=== PATIENT | male | born 1970 | race Hispanic/Latino ===

== ENCOUNTER 2017-03-30 06:49 | Emergency (ER) | payer OTHER ==
[2017-03-30 07:03] VITALS: PULSE 69; TEMP 98.6
[2017-03-30] MEDS ORDERED: Lidocaine 1% Inj (20ml) INFIL STA (07:24)
--- NOTE | 2017-03-30 07:27 | C.PDOC ---
Time Seen by Provider: 03/30/17 07:15 Chief Complaint (Nursing): Abnormal Skin Integrity Past Medical History Vital Signs: Last Vital Signs Temp 98.6 F 03/30/17 07:00 Pulse 69 03/30/17 07:00 Resp 20 03/30/17 07:00 BP 138/88 03/30/17 07:00 Pulse Ox 98 03/30/17 07:00 - Social History Hx Alcohol Use: No Hx Substance Use: No - Immunization History Hx Tetanus Toxoid Vaccination: No Hx Influenza Vaccination: No Hx Pneumococcal Vaccination: No ED Course And Treatment O2 Sat by Pulse Oximetry: 98 Disposition - Disposition
[2017-03-30] MEDS ORDERED: Lidocaine 1% Inj (20ml) ONE (07:28)
--- NOTE | 2017-03-30 07:31 | C.PDOC ---
History Of Present Illness 46 y/o male presents to ED for evaluation of laceration sustained on right hand while opening broken window prior to arrival. Patient denies foreign body sensation, change in sensation, active bleeding or any other complaints at this time. As per patient last tetanus vaccine was administered in 2015. Time Seen by Provider: 03/30/17 07:15 Chief Complaint (Nursing): Abnormal Skin Integrity History Per: Patient History/Exam Limitations: no limitations Onset/Duration Of Symptoms: Hrs Current Symptoms Are (Timing): Still Present Location Of Injury: Right: Hand Quality Of Symptoms: Painful Past Medical History Reviewed: Historical Data, Nursing Documentation, Vital Signs Vital Signs: Last Vital Signs Temp 98.6 F 03/30/17 07:00 Pulse 69 03/30/17 07:00 Resp 20 03/30/17 07:00 BP 138/88 03/30/17 07:00 Pulse Ox 98 03/30/17 07:45 - Medical History PMH: No Chronic Diseases Surgical History: No Surg Hx Family History: States: No Known Family Hx - Social History Hx Alcohol Use: No Hx Substance Use: No - Immunization History Hx Tetanus Toxoid Vaccination: No Hx Influenza Vaccination: No Hx Pneumococcal Vaccination: No Review Of Systems Gastrointestinal: Negative for: Nausea, Vomiting Musculoskeletal: Positive for: Hand Pain Skin: Negative for: Rash Neurological: Negative for: Weakness, Numbness Physical Exam - Physical Exam Appears: Non-toxic, No Acute Distress Skin: Warm, Dry, Other (2cm linear superficial laceration to right hand between 4th and 5th digit. No active bleeding) Head: Normacephalic Oral Mucosa: Moist Chest: Symmetrical Extremity: Capillary Refill (<2 seconds), No Deformity Extremity: Bilateral: Normal ROM Pulses: Left Radial: Normal, Right Radial: Normal Neurological/Psych: Oriented x3, Normal Motor, Normal Sensation ED Course And Treatment O2 Sat by Pulse Oximetry: 98 (RA) Pulse Ox Interpretation: Normal Laceration - Laceration Repair right hand Wound Length (In cm): 2 Description Of Wound: Linear Wound Cleansed With: Betadine, Sterile Saline Anesthesia: Lidocaine 1% Wound Examination: Irrigated With Saline, No FB With Wound Exploration, No Tendon Injury With Wound Exploration Wound Closure: Suture (3) Suture Technique And Material Used: Nylon (4-O) Wound Complexity: Simple Medical Decision Making Medical Decision Making: Plan: Right hand Laceration Repair Instruct patient on wound care. Additionally patient complains of pain to right upper tooth; area examined no swelling and fair dentition with caries. Will give antibiotics and instruct to follow up with dentist Disposition Counseled Patient/Family Regarding: Diagnosis, Need For Followup, Rx Given - Disposition Disposition: HOME/ ROUTINE Disposition Time: 07:45 Condition: STABLE Additional Instructions: Keep area clean and dry. May wash gently with soap and water, do not use alcohol or iodine solution. Change dressing 1-2 times daily. Return to ER if fever occurs, redness or swelling around wound, pus in the wound. Please follow up with your primary doctor, clinic, or urgent care for suture removal in 8-10 days Prescriptions: Cephalexin [cephalexin] 500 mg PO Q12 #14 cap Instructions: Care For Your Stitches (ED) Forms: [facility] (Portuguese) - POA Present On Arrival: None - Clinical Impression Clinical Impression: Hand laceration - PA / CASH CLERK / Resident Statement MD/DO has reviewed & agrees with the documentation as recorded. - Scribe Statement The provider has reviewed the documentation as recorded by the Ki Juarez All medical record entries made by the Ki were at my direction and personally dictated by me. I have reviewed the chart and agree that the record accurately reflects my personal performance of the history, physical exam, medical decision making, and the department course for this patient. I have also personally directed, reviewed, and agree with the discharge instructions and disposition.
[2017-03-30] MEDS ORDERED: Bacitracin 500 Units/gm Oint Foilpak UD ONE (08:04)
[2017-03-30 08:25] VITALS: BP 135/83; RESP 18; O2SAT 96
== END 2017-03-30 08:21 | disposition home or self-care (01) ==
LOC: C.ER 06:49
DX: S61.411A Laceration without foreign body of right hand, initial encounter (principal); W25.XXXA Contact with sharp glass, initial encounter